=== PATIENT | male | born 1995 | race Hispanic/Latino ===

== ENCOUNTER 2020-07-31 08:20 | Outpatient (CLI) | payer BC | END 2020-07-31 08:21 | disposition home or self-care (01) | LOC: TBSIIMAG 08:20 | PROVIDERS: ATTEND Orthopaedic Surgery | DX: S83.92XA Sprain of unspecified site of left knee, initial encounter (principal); S83.105A Unspecified dislocation of left knee, initial encounter; S83.242A Other tear of medial meniscus, current injury, left knee, initial encounter ==

== ENCOUNTER 2020-08-29 17:41 | Outpatient (CLI) | payer BC ==
[2020-08-29 18:43] LABS: #Monocytes 0.4 10x3/uL (0.0-1.1); #Neutrophils 5.5 10x3/uL (1.5-8.4); %Basophils 0.5 % (0.0-2.0); %Eosinophils 0.1 % (0.0-6.0); %Lymphocytes 28.2 % (18.0-47.0); %Monocytes 4.6 % (0.0-10.0); %Neutrophils 66.4 % (40.0-75.0); Hemoglobin 15.3 g/dL (13.5-17.5); Mean Corpuscular HGB CONC 34.5 g/dL (32.0-36.0); Mean Corpuscular Hemoglobin 31.1 pg (27.0-33.0); Mean Corpuscular Volume 90.2 fl (81.2-95.1); Mean Platelet Volume 9.4 fl (7.4-10.4); Platelet Count 264 10x3/uL (150-450); RBC Distribution Width 12.1 % (11.5-14.5); Red Blood Cell (RBC) Count 4.92 10x6/uL (4.32-5.72); White Blood Cell (WBC) Count 8.2 10x3/uL (3.5-10.5)
[2020-08-30 01:15] LABS: SARS-CoV-2 PCR by NAA Not Detected (NotDetected)
== END 2020-08-29 17:42 | disposition home or self-care (01) ==
LOC: LABBT 17:41
PROVIDERS: ATTEND Orthopaedic Surgery
DX: Z01.812 Encounter for preprocedural laboratory examination (principal); S83.242A Other tear of medial meniscus, current injury, left knee, initial encounter; S83.512A Sprain of anterior cruciate ligament of left knee, initial encounter; Z20.822 Contact with and (suspected) exposure to COVID-19
CPT/HCPCS: 85025; 87635; U0003; U0005

== ENCOUNTER 2020-08-31 05:57 | Day surgery (SDC) | payer BC ==
[2020-08-30 11:03] VITALS: BMI 28.8
[2020-08-31] MEDS ORDERED: Midazolam HCl 2 mg/2 ml Vial ONE (07:01)
[2020-08-31] MEDS ORDERED: Fentanyl 100 MCG/2 ML VIAL ONE ×2 (07:01→07:45)
[2020-08-31] MEDS ORDERED: Lidocaine 1% PF 5 ML VIAL ONE (07:37)
[2020-08-31] MEDS ORDERED: Ketorolac Tromethamine 30 MG/ML VIAL ONE (07:37)
[2020-08-31] MEDS ORDERED: PROPOFOL 200 MG/20 ML VIAL ONE (07:37)
[2020-08-31] MEDS ORDERED: Ropivacaine 0.5% HCl/PF (150 MG/30 ML VIAL) ONE (07:37)
[2020-08-31] MEDS ORDERED: Dexamethasone 20 MG/5 ML VIAL ONE (07:37)
[2020-08-31] MEDS ORDERED: Ondansetron PF 4 MG/2 ML Vial ONE ×2 (07:37→09:42)
[2020-08-31] MEDS ORDERED: Fentanyl 100 MCG/2 ML VIAL IV PRN (08:08)
[2020-08-31] MEDS ORDERED: Ondansetron PF 4 MG/2 ML Vial IVP PRN (08:15)
[2020-08-31] MEDS ORDERED: traMADol HCl 50 MG TAB PO PRN ×2 (08:15)
[2020-08-31] MEDS ORDERED: Ketorolac Tromethamine 30 MG/ML VIAL IVP PRN (08:15)
[2020-08-31] MEDS ORDERED: HYDROcodone/Acetaminophen 10/325 mg Tablet PO PRN ×2 (08:15)
[2020-08-31] MEDS ORDERED: Ropivacaine 0.2% 550 ML 550 ML NERVE BLCK SCH (08:15)
[2020-08-31] MEDS ORDERED: Zolpidem Tartrate 5 MG TAB PO PRN (08:15)
[2020-08-31] MEDS ORDERED: Promethazine HCl 25 MG/ML VIAL IM PRN (08:15)
[2020-08-31] MEDS ORDERED: Meperidine HCl/PF 25 MG/ML VIAL ONE (09:24)
[2020-08-31] MEDS ORDERED: HYDROcodone/Acetaminophen 5/325 mg Tablet ONE (10:16)
== END 2020-08-31 14:00 | disposition home or self-care (01) ==
LOC: SDC 05:57
PROVIDERS: ATTEND Orthopaedic Surgery
PROC: 3E0T3BZ Introduction of Anesthetic Agent into Peripheral Nerves and Plexi, Percutaneous Approach (ICD-10-PCS; principal; 2020-08-31)
PROC: 0MRP47Z Replacement of Left Knee Bursa and Ligament with Autologous Tissue Substitute, Percutaneous Endoscopic Approach (ICD-10-PCS; principal; 2020-08-31)
DX: S83.512A Sprain of anterior cruciate ligament of left knee, initial encounter (principal); G89.18 Other acute postprocedural pain; Z91.018 Allergy to other foods; X58.XXXA Exposure to other specified factors, initial encounter; Y93.67 Activity, basketball
CPT/HCPCS: A4306; C1713; J0690; J1100; J1885; J2175; J2250; J2405; J2704; J2795; J3010